=== PATIENT | female | born 1970 | race Caucasian/White ===

== ENCOUNTER 2016-04-26 13:30 | Emergency (ER) | payer MEDICAID ==
[2016-04-26] MEDS ORDERED: IBUPROFEN 600 MG TABLET PO ONE (14:17)
--- NOTE | 2016-04-26 14:36 | CT REPORT ---
Radiology report MRI brain without contrast 04/26/2016 CLINICAL HISTORY: Distal fall, hit occipital area, confusion PROCEDURE: Routine noncontrast axial imaging of the brain was performed. FINDINGS: Brain volume and ventricular size appear normal. No focal parenchymal abnormalities. No hem orrhage or infarction. There is no subdural or epidural collection, midline shift or mass effect. Visualized paranasal sinuses, and mastoid air cells are clear. Skull is intact. IMPRESSION: Negative head CT. Report called to Dr. Blue Final Electronic Signature: This report was electronically signed by Leo Salazar MD on 04/26/2016 2 :34 PM. jaky /
[2016-04-26] MEDS ORDERED: ACETAMINOPHEN 325 MG TABLET PO ONE (15:36)
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
== END 2016-04-26 18:26 | disposition home or self-care (01) ==
LOC: ER 13:30
DX: S06.0X0A Concussion without loss of consciousness, initial encounter (principal); W00.0XXA Fall on same level due to ice and snow, initial encounter; Y92.89 Other specified places as the place of occurrence of the external cause; Y93.01 Activity, walking, marching and hiking; Z79.899 Other long term (current) drug therapy
CPT/HCPCS: 70450; 99284